=== PATIENT | female | born 1940 | race Caucasian/White ===

== ENCOUNTER → 2016-10-19 | Day surgery (SDC) | payer OTHER ==
[~2016-10-19] MED LIST: ASPIRIN81 MG PO; ASPIRINEC PO; CALCIUM 500 + D1 TAB PO; CALCIUM PO; CERTAGEN PO; COMBIVENT INH14.7 GM INH; HYDROCHLOROTH12.5 M1 PO; METOPROLOL SUCC25 MG PO; MULTI-DAY1 TAB PO; NATURAL VITA400 UNI2 PO; PRAVACHOL PO; PRAVASTATIN SOD40 MG PO; PRILOSEC PO; TYLENOL #3 PO; VIT C PO; VITAMIN C500 M1 PO; [UNRECOGNIZED DRUG - OTHER] PO
--- NOTE | ~2016-10-19 | OR ---
Unit #: [id number] #: [id number] Patient: LATOYA GARCIA [id number] [address] [place], [place] [address] [id number] MR#: [id number] NAME: LATOYA GARCIA ROOM: Date of Procedure: 10/19/2016 Admission Date: 10/19/2016 Surgeon: Mahendra Choi M.D. : 1940 Attending Physician: Mahendra Choi M.D. Primary Care Physician: Ronel Love M.D. OPERATIVE REPORT PROCEDURES PERFORMED Esophagogastroduodenoscopy with biopsies and colonoscopy to cecum. INDICATIONS FOR PROCEDURE The patient with chronic iron-deficiency anemia, undergoing evaluation with upper endoscopy and colonoscopy. MEDICATIONS Monitored anesthesia. POSTOPERATIVE FINDINGS 1. Hiatal hernia; esophageal ring, nonobstructing. 2. Mild gastritis. Biopsies taken. 3. Normal duodenum and distal duodenum. 4. Colonoscopy completed to cecum. Good prep. No polyps or masses. PLAN Watch H and H. DESCRIPTION OF PROCEDURE The patient was explained of the procedure, risks, and benefits along with the risks and benefits of anesthesia. She was brought to the endoscopy room. Propofol anesthesia was given. Bite block was placed. The scope was passed down the mouth into the esophagus, stomach, duodenum, and distal duodenum. Findings as described. Biopsies taken. Gently, I pulled it out of the patient's mouth. At this time, she was turned around and repositioned for colonoscopy. Rectal exam was done, which was normal. Colonoscope was lubricated, passed up the rectum, advanced under direct vision all the way to the cecum. Cecum was identified by ileocecal valve and appendiceal orifice. I then started to pull the scope out carefully looking. Diverticulosis noted. No polyps, masses, or colitis. I retroflexed in the rectum, small hemorrhoids. Gently, the scope was pulled out. She tolerated it well. No major complications were seen. Dictated by... Jg Harvey/maggie Unit #: [id number] #: [id number] Patient: LATOYA GARCIA TD: 10/20/2016 01:24 JOB #: [id number] OPERATIVE REPORT X Mahendra Choi MD PROCEDURE OPERATIVE NOTE
== END | disposition home or self-care (01) ==
LOC: COPS 10:33
DX: K29.50 Unspecified chronic gastritis without bleeding (principal); K22.2 Esophageal obstruction; K44.9 Diaphragmatic hernia without obstruction or gangrene; K57.30 Diverticulosis of large intestine without perforation or abscess without bleeding; K64.9 Unspecified hemorrhoids; I10 Essential (primary) hypertension; E78.5 Hyperlipidemia, unspecified; J45.909 Unspecified asthma, uncomplicated; K21.9 Gastro-esophageal reflux disease without esophagitis; D64.9 Anemia, unspecified; Z79.82 Long term (current) use of aspirin; Z79.899 Other long term (current) drug therapy; Z90.710 Acquired absence of both cervix and uterus; Z98.890 Other specified postprocedural states
CPT/HCPCS: 88305; 88312; J2250